=== PATIENT | female | born 1935 | race Caucasian/White ===

== ENCOUNTER 2019-01-12 08:28 | Day surgery (SDC) | payer MEDICARE, BC ==
[2019-01-11 16:06] VITALS: BMI 26.6
[2019-01-12 09:20] LABS: Hemoglobin 14.8 g/dL (12.0-16.0); Mean Corpuscular HGB CONC 33.5 g/dL (32.0-36.0); Mean Corpuscular Hemoglobin 29.6 pg (27.0-31.0); Mean Corpuscular Volume 88.3 fL (78.0-98.0); Mean Platelet Volume 8.7 fL (7.4-10.4); Platelet Count 231 thou/uL (130-400); RBC Distribution Width 12.3 % (11.5-14.5)
[2019-01-12 09:25] LABS: Prothrombin Time 13.7 SEC (12.0-14.7)
[2019-01-12 09:38] LABS: Anion Gap 14 mmol/L (10-20); BUN (Urea Nitrogen) 18 mg/dL (9.8-20.1); Calc. Creatinine Clearance 61 mL/min (70-130); Calcium 9.8 mg/dL (7.8-10.44); Carbon Dioxide 23 mmol/L (23-31); Chloride 108 mmol/L (98-107); Estimated GFR-MDRD 66; Glucose 133 mg/dL (83-110); Potassium 3.9 mmol/L (3.5-5.1); Sodium 141 mmol/L (136-145)
[2019-01-12] MEDS ORDERED: Fentanyl 100 MCG/2 ML VIAL ONE ×2 (10:16→12:33)
[2019-01-12] MEDS ORDERED: Sodium Chloride 0.9% 10 ML ONE (10:22)
[2019-01-12] MEDS ORDERED: Bacitracin Zinc Ointment 30 gm TUBE ONE (10:22)
[2019-01-12] MEDS ORDERED: Thrombin 5000 UNITS/5 ML VIAL ONE (10:22)
[2019-01-12] MEDS ORDERED: Promethazine HCl 25 MG/ML VIAL SLOW IVP PRN (12:14)
[2019-01-12] MEDS ORDERED: Ondansetron HCl/PF 4 MG/2 ML Vial IVP PRN (12:14)
[2019-01-12] MEDS ORDERED: Meperidine HCl/PF 25 MG/ML VIAL SLOW IVP PRN (12:14)
[2019-01-12] MEDS ORDERED: Promethazine HCl 25 MG/ML VIAL IM PRN (12:14)
[2019-01-12] MEDS ORDERED: HYDROmorphone 2 MG/ML VIAL SLOW IVP PRN (12:14)
[2019-01-12] MEDS ORDERED: PACU-Morphine 4MG/ML VIAL SLOW IVP PRN (12:14)
[2019-01-12] MEDS ORDERED: Morphine Sulfate 2 MG/ML SYRINGE SLOW IVP PRN (12:14)
[2019-01-12] MEDS ORDERED: HYDROmorphone 2 MG/ML VIAL ONE (12:33)
[2019-01-12] MEDS ORDERED: Mag-Al 1200 mg/1200 mg/30 ML UDCUP PO PRN (12:45)
[2019-01-12] MEDS ORDERED: Morphine 4 MG/ML VIAL SLOW IVP PRN (12:45)
[2019-01-12] MEDS ORDERED: Bisacodyl 10 MG SUPP PR PRN (12:45)
[2019-01-12] MEDS ORDERED: Promethazine HCl 25 MG/ML VIAL IVPB PRN (12:45)
[2019-01-12] MEDS ORDERED: tiZANidine HCl 4 MG TAB PO PRN (12:45)
[2019-01-12] MEDS ORDERED: Milk Of Magnesia 30 ML UDCUP PO PRN (12:45)
[2019-01-12] MEDS ORDERED: Fleet Enema 133 ML BOT PR PRN (12:45)
[2019-01-12] MEDS ORDERED: HYDROcodone/Acetaminophen 7.5/325 mg Tablet PO PRN (12:45)
[2019-01-12] MEDS ORDERED: traMADol HCl 50 MG TAB PO PRN (12:45)
[2019-01-12] MEDS ORDERED: Ondansetron PF 4 MG/2 ML Vial ONE ×2 (14:09→17:15)
[2019-01-12] MEDS ORDERED: Promethazine HCl 25 MG/ML VIAL ONE (14:37)
[2019-01-12] MEDS ORDERED: Lidocaine 1% PF 5 ML VIAL ONE (17:15)
[2019-01-12] MEDS ORDERED: PROPOFOL 200 MG/20 ML VIAL ONE (17:15)
[2019-01-12] MEDS ORDERED: Dexamethasone 20 MG/5 ML VIAL ONE (17:15)
[2019-01-12] MEDS ORDERED: Rocuronium Bromide 10 MG/ML (10ML VIAL) ONE (17:15)
[2019-01-12] MEDS ORDERED: Glycopyrrolate 0.2 MG/ML 5 ML SYRINGE ONE (17:15)
[2019-01-12] MEDS ORDERED: PHENYLEPHRINE-NS 100 MCG/ML 10 ML SYRINGE ONE (17:15)
--- NOTE | 2019-01-12 18:30 | OP ---
DATE OF PROCEDURE: 01/12/2019 OPERATING ROOM: OR 5. WOUND CLASSIFICATION: Type 1 wound. HYDROTECHNICAL SPECIALIST: David Jensen PA-C. PREPROCEDURE DIAGNOSIS: Lumbar stenosis with lumbar spondylolisthesis. POSTPROCEDURE DIAGNOSIS: Lumbar stenosis with lumbar spondylolisthesis. PROCEDURES PERFORMED: 1. L3-L4 laminectomy, partial facetectomy, foraminotomy. 2. In situ posterolateral fusion with local bone autograft obtained from same incision and allograft to L3-L4. DESCRIPTION OF PROCEDURE: After informed consent was obtained from the patient, the patient was brought to the OR. Proper patient, pause, and identification were carried out. She was then placed under excellent general endotracheal anesthesia and positioned prone on the OR table. All appropriate points were padded. A linear ottoniel was drawn over the L3-L4 segment posteriorly. This area was sterilely cleansed, prepared, and draped. Proper patient, pause, and identification were carried out. The wound was then opened with a combination of sharp, monopolar, and blunt dissection. The L3-L4 dorsal spines and lamina were exposed along with the facet complexes. The localization film confirmed our area of interest. We then performed an L3-L4 laminectomy, partial facetectomy, and foraminotomies with excellent decompression of the L3-L4 nerve roots. Posterolateral decortication then occurred, and local bone autograft obtained from same incision and allograft were laid over the posterolateral regions for arthrodesis. Copious irrigation and maximal hemostasis occurred throughout. We then closed the wound in anatomic layers following sprinkling of vancomycin powder. There was no spinal fluid leak. Job ID: [id number]
[2019-01-12] MEDS: Sodium Chloride 0.9% 1,000 ML IV SCH (19:22)
[2019-01-12] MEDS: Acetaminophen 325 MG TAB PO PRN (20:58)
[2019-01-13] MEDS: Sodium Chloride 0.9% 1,000 ML IV SCH (05:54)
[2019-01-13] MEDS ORDERED: Levothyroxine Sodium 50 MCG TAB PO SCH (06:00)
[2019-01-13] MEDS: Acetaminophen 325 MG TAB PO PRN (09:16)
[2019-01-13 11:57] VITALS: BP 104/63; TEMP 98.5
--- NOTE | 2019-01-13 12:03 | PRG ---
DATE OF SERVICE: 01/13/2019 Ms. Esteves is postop day #1, following lumbar laminectomy with Dr. Arroyo. Again, her plan was inpatient rehab initially, but as of this morning, the patient is doing quite well and would prefer really to try to go home potentially as earliest today. I would like to see her mobilize a lot more than she has this fall, so we will work on this today. I will call back up around lunch time and if she is up and able to try to get her home. Job ID: [id number]
--- NOTE | 2019-01-17 14:46 | EKG ---
Test Reason : PREOP Blood Pressure : / mmHG Vent. Rate : 075 BPM Atrial Rate : 075 BPM P-R Int : 196 ms QRS Dur : 090 ms QT Int : 416 ms P-R-T Axes : 055 -07 065 degrees QTc Int : 464 ms Normal sinus rhythm Normal ECG Confirmed by RILEY GARRISON ([id number]) on 01/17/2019 2:46:03 PM Referred By: EDEN Confirmed By:RILEY GARRISON
== END 2019-01-13 14:15 | disposition home or self-care (01) ==
LOC: SDC 08:28 → SURG A 14:18 → SDC 01-13 14:15
PROVIDERS: ATTEND Surgery
PROC: 0SG0071 Fusion of Lumbar Vertebral Joint with Autologous Tissue Substitute, Posterior Approach, Posterior Column, Open Approach (ICD-10-PCS; principal; 2019-01-12)
DX: M48.061 Spinal stenosis, lumbar region without neurogenic claudication (principal); M43.16 Spondylolisthesis, lumbar region; M54.16 Radiculopathy, lumbar region; Z79.899 Other long term (current) drug therapy; Z88.5 Allergy status to narcotic agent; Z88.8 Allergy status to other drugs, medicaments and biological substances
CPT/HCPCS: 36415; 76000; 80048; 85027; 85610; 85730; 93005; 93010; J0690; J1100; J1170; J2001; J2270; J2405; J2550; J2704; J3010; J3370; J3490